=== PATIENT | female | born 1975 | race American Indian/Alaskan Native ===

== ENCOUNTER 2017-02-24 06:33 | Emergency (ER) | payer OTHER ==
[2017-02-24] MEDS ORDERED: ZOFRAN IV ONE ×2 (07:54→09:24)
[2017-02-24] MEDS ORDERED: NACL 0.9% 1000 ML 1,000 ML IV ONE (07:54)
[2017-02-24] MEDS ORDERED: TORADOL IV ONE (07:54)
[2017-02-24] MEDS ORDERED: BENADRYL IV ONE (07:54)
--- NOTE | 2017-02-24 07:56 | Emergency Department Report ---
ED Headache HPI - General Chief Complaint: Headache Stated Complaint: MIGRAINE/RT EYE HIEN/NUMBNESS/VOMITING Time Seen by Provider: 02/24/17 07:54 Source: patient Exam Limitations: no limitations - History of Present Illness Initial Comments: Patient reports gradual onset of cluster migraine headache with nausea, vomiting and visual difficulty in the right eye that started around 5:30 am. She denies head trauma, fever, neck stiffness, nasal drainage, closed spaces or dizziness Timing/Duration: 1-3 hours Quality: severe Head Injury Location: occipital (right) Recent Head Trauma: no recent headache/trauma, chronic headaches Modifying Factors: improves with: immobilization, medication, rest. worse with : exposure to light, movement Associated Symptoms: denies symptoms, nausea/vomiting, vision changes (right eye ). denies: confusion, fatigue, facial pain, fever/chills, flushing, loss of consciousness, nasal congestion, nasal drainage, numbness in legs/feet, rash, seizures, sinus infection, stiff neck, weakness Allergies/Adverse Reactions: Allergies almotriptan malate [From Axert] Allergy (Verified 02/24/17 07:11) Vomiting coconut oil Allergy (Verified 02/24/17 07:11) Nausea morphine Allergy (Verified 02/24/17 07:11) Itching prochlorperazine [From Compazine] Allergy (Verified 02/24/17 07:11) Swelling prochlorperazine edisylate [From Compazine] Allergy (Verified 02/24/17 07:11) Swelling prochlorperazine maleate [From Compazine] Allergy (Verified 02/24/17 07:11) Swelling promethazine HCl [From Phenergan] Allergy (Verified 02/24/17 07:11) Shortness of Breath raspberry Allergy (Verified 02/24/17 07:11) Unknown sumatriptan [From Imitrex] Allergy (Verified 02/24/17 07:11) Anaphylaxis sumatriptan succinate [From Imitrex] Allergy (Verified 02/24/17 07:11) Anaphylaxis Home Medications: Ambulatory Orders Ondansetron [Zofran TAB] 4 mg PO Q8HR PRN #8 tablet 02/24/17 ED Review of Systems ROS: Stated complaint: MIGRAINE/RT EYE HIEN/NUMBNESS/VOMITING Other details as noted in HPI Constitutional: denies: chills, diaphoresis, fever, malaise, weakness Eyes: vision change (right eye with aura). denies: eye pain, eye discharge ENT: denies: ear pain, throat pain, dental pain, hearing loss, epistaxis, congestion Respiratory: denies: cough, orthopnea, shortness of breath, SOB with exertion, SOB at rest, stridor, wheezing Cardiovascular: denies: chest pain, palpitations, dyspnea on exertion, orthopnea , edema, syncope, paroxysmal nocturnal dyspnea Gastrointestinal: nausea, vomiting. denies: abdominal pain, diarrhea, constipation Genitourinary: denies: urgency, dysuria, frequency, hematuria, discharge Musculoskeletal: denies: back pain, joint swelling, arthralgia Skin: denies: rash, lesions Neurological: headache. denies: weakness, numbness, paresthesias, confusion, abnormal gait, vertigo Psychiatric: denies: anxiety, depression Hematological/Lymphatic: denies: easy bleeding, easy bruising, swollen glands ED Past Medical Hx - Past Medical History Previous Medical History?: Yes Additional medical history: cluster migraines, last migraine 2010 - Surgical History Past Surgical History?: Yes Hx Cholecystectomy: Yes Additional Surgical History: oral, tonsillectomy - Social History Smoking Status: Never Smoker Substance Use Type: Alcohol - Medications Home Medications: Home Medications Medication Instructions Recorded Confirmed Last Taken Type Ondansetron [Zofran TAB] 4 mg PO Q8HR PRN #8 tablet 02/24/17 Unknown Rx ED Physical Exam - General Limitations: No Limitations General appearance: alert, in no apparent distress - Head Head exam: Present: atraumatic, normocephalic - Eye Eye exam: Present: normal appearance, PERRL, EOMI. Absent: scleral icterus, conjunctival injection, nystagmus, periorbital swelling, periorbital tenderness Pupils: Present: normal accommodation. Absent: irregular, unequal, miosis, mydriatic - ENT ENT exam: Present: normal exam, normal orophraynx, mucous membranes moist, TM's normal bilaterally, normal external ear exam. Absent: mucous membranes dry - Neck Neck exam: Present: normal inspection, full ROM. Absent: tenderness, meningismus, lymphadenopathy, thyromegaly - Respiratory Respiratory exam: Present: normal lung sounds bilaterally. Absent: respiratory distress, wheezes, rales, rhonchi, stridor, chest wall tenderness, accessory muscle use, decreased breath sounds, prolonged expiratory - Cardiovascular Cardiovascular Exam: Present: normal rhythm, normal heart sounds. Absent: systolic murmur, diastolic murmur, rubs, gallop - GI/Abdominal GI/Abdominal exam: Present: soft, normal bowel sounds. Absent: distended, tenderness, guarding, rebound, rigid - Rectal Rectal exam: Present: deferred - Extremities Exam Extremities exam: Present: normal inspection, full ROM, normal capillary refill. Absent: tenderness, pedal edema, joint swelling, calf tenderness - Back Exam Back exam: Present: normal inspection, full ROM. Absent: tenderness, CVA tenderness (R), CVA tenderness (L), muscle spasm, paraspinal tenderness, vertebral tenderness, rash noted - Neurological Exam Neurological exam: Present: alert, oriented X3, CN II-XII intact, normal gait, reflexes normal. Absent: motor sensory deficit - Expanded Neurological Exam Expanded Neurological exam: Present: protecting the airway. Absent: innattentive, memory loss-remote event, memory loss-recent event, ataxia, receptive aphasia, expressive aphasia, total aphasia, tremor Patient oriented to: Present: person, place, time Speech: Present: fluid speech. Absent: receptive aphasia, expressive aphasia, total aphasia Cranial nerves: EOM's Intact: Normal, Gag Reflex: Normal, Tongue Deviation: Normal, Nystagmus: Normal, Facial Sensation: Normal, Facial Palsy with Forehead Movement: Normal Ataxia: Absent: yes Cerebellar function: Finger to Nose: Normal, Heel to [place]: Normal Upper motor neuron: Jero Neglect: Normal, Pronator Drift: Normal, Sensory Extinction: Normal Sensory exam: Upper Extremity Light Touch: Normal, Upper Extremity Temperature: Normal, UE 2 Point Discrimination: Normal, Lower Extremity Light Touch: Normal, Lower Extremity Temperature: Normal, LE 2 Point Discrimination: Normal Motor strength exam: RUE: 5, LUE: 5, RLE: 5, LLE: 5 DTR: knee (R): 2+, knee (L): 2+ Best Eye Response (Americ[place]): (4) open spontaneously Best Motor Response ([place]): (6) obeys commands Best Verbal Response ([place]): (5) oriented [place] Total: 15 - Psychiatric Psychiatric exam: Present: normal affect, normal mood - Skin Skin exam: Present: warm, dry, intact, normal color. Absent: rash ED Course Vital Signs 02/24/17 02/24/17 06:55 10:13 Temperature 98.1 F Pulse Rate 104 H 103 H Respiratory 18 16 Rate Blood Pressure 178/110 Blood Pressure 167/88 [Left] O2 Sat by Pulse 96 98 Oximetry - Reevaluation(s) Reevaluation #1: 02/24/17 09:28 Intravenous fluids, antiemetic, antihistamine and analgesic ordered ED Medical Decision Making - Lab Data Vital Signs 02/24/17 02/24/17 06:55 10:13 Temperature 98.1 F Pulse Rate 104 H 103 H Respiratory 18 16 Rate Blood Pressure 178/110 Blood Pressure 167/88 [Left] O2 Sat by Pulse 96 98 Oximetry - Medical Decision Making During the course of ED, intravenous fluids, antiemetic, antihistamine and analgesic were ordered. She reports that Morphine injection is needed for pain relief, although she experienced itching in the past. The patient's pain scale went from 10/10 to 7/10, therefore she was given an injection for Morphine. After the injection, patient's pain scale was 5/10. She was sent home with a prescription for Zofran, instructed to take Ibuprofen as needed for pain relief. Follow up instructions were reviewed and she verbalized understanding - Differential Diagnosis Migraine Headache, Tension Headache Critical care attestation.: If time is entered above; I have spent that time in minutes in the direct care of this critically ill patient, excluding procedure time. ED Disposition Disposition: DISCHARGED TO HOME OR SELFCARE Is pt being admited?: No Does the pt Need Aspirin: No Condition: Stable Instructions: Migraine Headache (ED) Additional Instructions: Take medication as directed. Follow up with the selective referral given at discharge Prescriptions: Ondansetron [Zofran TAB] 4 mg PO Q8HR PRN #8 tablet PRN Reason: Nausea Referrals: PRIMARY CARE, [Primary Care Provider] - 3-5 Days ANUJA CEBALLOS MD [Staff Physician] - 3-5 Days ASHU MARCANO MD [Staff Physician] - 3-5 Days Forms: Work/School Release Form(ED) Time of Disposition: 10:16
[2017-02-24] MEDS ORDERED: MORPHINE IM ONE (09:35)
[2017-02-24 10:14] VITALS: BP 167/88
== END 2017-02-24 10:26 | disposition home or self-care (01) ==
LOC: ED 06:33
DX: G43.909 Migraine, unspecified, not intractable, without status migrainosus (principal); G44.209 Tension-type headache, unspecified, not intractable; Z91.018 Allergy to other foods; Z88.6 Allergy status to analgesic agent; Z88.8 Allergy status to other drugs, medicaments and biological substances; R11.2 Nausea with vomiting, unspecified
CPT/HCPCS: 96361; 96372; 96374; 96375; 96376; 99282; J1200; J1885; J2270; J2405; J7030